=== PATIENT | male | born 1935 | race Caucasian/White ===

== ENCOUNTER 2021-04-24 16:51 | Emergency (ER) | payer MEDICARE ==
[2021-04-24] MEDS ORDERED: SODIUM CHLORIDE 0.9% 500 ML 500 ML IV ONE (16:54)
[2021-04-24 16:59] VITALS: TEMP 97.5
--- NOTE | 2021-04-24 17:07 | ED ---
Altered Mental Status HPI - General Stated Complaint: Altered mental Time Seen by Provider: 04/24/21 16:54 Source: patient, EMS Mode of arrival: EMS Limitations: altered mental status - History of Present Illness Initial Comments: Darren is a very pleasant 86-year-old gentleman is brought to the emergency department today by ambulance with police escort. Patient was apparently found on the water breakage and was quite confused. Patient reports that there is nothing that on TV that we run so he got his truck and started driving. Patient apparently left his home and [facility] 3 days ago and has been sleeping in his car. Uncertain where he has been. He was not aware he was attempting to cross and to [place] when he was stopped. Can't explain why he has been driving if he has been eating and states that he's been sleeping in his truck. Patient does not know where he is or what day it is. Truck at [employer] Complaint: intoxication - Related Data Home Medications Medication Instructions Recorded Confirmed Unable To Assess [Unable to Assess] 04/24/21 04/24/21 Allergies Allergy/AdvReac Type Severity Reaction Status Date / Time No Known Allergies Allergy Verified 04/24/21 17:22 Review of Systems ROS Statement: Those systems with pertinent positive or pertinent negative responses have been documented in the HPI. ROS Other: All systems not noted in ROS Statement are negative. General Exam Limitations: altered mental status Course Vital Signs 04/24/21 04/24/21 04/24/21 16:52 18:59 21:47 Temperature 97.5 F L Pulse Rate 74 68 72 Respiratory 19 17 18 Rate Blood Pressure 146/80 150/78 171/92 O2 Sat by Pulse 95 96 97 Oximetry Medical Decision Making - Medical Decision Making The patient was seen and evaluated, history is obtained from the patient and PD. This a very pleasant 86-year-old gentleman who [facility], he is from [facility] could not explain why he was on the bridge stated that he was just following this in mind front of him. He denies any physical complaints. Patient's labs were obtained and troponin was critically elevated at 4.4, this was discussed with Dr. Varela there is no chest pain is no ischemic findings on EKG. He recommended trending the troponin. Patient care was discussed with admitting physician Dr. patrick the who since the admission for elevated troponin and confusion. Patient remained chest pain-free throughout his stay in the ER. He was found walking around the ER is quite friendly and in absolutely no distress. His granddaughter arrived at bedside from [facility]. She was notified of his elevated troponin concerned that he has dying heart tissue and is having a heart attack. Patient remained asymptomatic and absolutely insisted that he be allowed to go home with the granddaughter. Medical condition was discussed with patient, daughter telephone and granddaughter at bedside. They are aware that there is concern he is having heart attack. However the patient remains asymptomatic the granddaughter will take him out of the hospital at this time to [facility] and states that she will have him evaluated in the hospital there. - Lab Data Result diagrams: 04/24/21 17:17 04/24/21 17:17 Lab Results 04/24/21 04/24/21 04/24/21 Range/Units 17:17 17:17 17:17 WBC 9.3 (3.8-10.6) k/uL RBC 5.27 (4.30-5.90) m/uL Hgb 17.1 (13.0-17.5) gm/dL Hct 50.4 (39.0-53.0) % MCV 95.7 (80.0-100.0) fL MCH 32.4 (25.0-35.0) pg MCHC 33.8 (31.0-37.0) g/dL RDW 12.6 (11.5-15.5) % Plt Count 157 (150-450) k/uL MPV 9.8 Neutrophils % 84 % Lymphocytes % 6 % Monocytes % 7 % Eosinophils % 1 % Basophils % 1 % Neutrophils # 7.8 H (1.3-7.7) k/uL Lymphocytes # 0.6 L (1.0-4.8) k/uL Monocytes # 0.6 (0-1.0) k/uL Eosinophils # 0.1 (0-0.7) k/uL Basophils # 0.1 (0-0.2) k/uL PT 11.5 (9.0-12.0) sec INR 1.1 (<1.2) APTT 24.7 (22.0-30.0) sec Sodium 139 (137-145) mmol/L Potassium 4.2 (3.5-5.1) mmol/L Chloride 101 (98-107) mmol/L Carbon Dioxide 27 (22-30) mmol/L Anion Gap 11 mmol/L BUN 23 H (9-20) mg/dL Creatinine 1.53 H (0.66-1.25) mg/dL Est GFR (CKD-EPI)AfAm 47 (>60 ml/min/1.73 sqM) Est GFR (CKD-EPI)NonAf 41 (>60 ml/min/1.73 sqM) Glucose 132 H (74-99) mg/dL POC Glucose (mg/dL) (75-99) mg/dL POC Glu Aerodynamics Teacher ID Calcium 10.0 (8.4-10.2) mg/dL Total Bilirubin 1.1 (0.2-1.3) mg/dL AST 46 (17-59) U/L ALT 16 (4-49) U/L Alkaline Phosphatase 98 (38-126) U/L Troponin I (0.000-0.034) ng/mL Total Protein 7.1 (6.3-8.2) g/dL Albumin 4.5 (3.5-5.0) g/dL Urine Color Urine Appearance (Clear) Urine pH (5.0-8.0) Ur Specific Roberts (1.001-1.035) Urine Protein (Negative) Urine Glucose (UA) (Negative) Urine Ketones (Negative) Urine Blood (Negative) Urine Nitrite (Negative) Urine Bilirubin (Negative) Urine Urobilinogen (<2.0) mg/dL Ur Leukocyte Esterase (Negative) Urine Opiates Screen (NotDetected) Ur Oxycodone Screen (NotDetected) Urine Methadone Screen (NotDetected) Ur Propoxyphene Screen (NotDetected) Ur Barbiturates Screen (NotDetected) U Tricyclic Antidepress (NotDetected) Ur Phencyclidine Scrn (NotDetected) Ur Amphetamines Screen (NotDetected) U Methamphetamines Scrn (NotDetected) U Benzodiazepines Scrn (NotDetected) Urine Cocaine Screen (NotDetected) U Marijuana (THC) Screen (NotDetected) Serum Alcohol <10 mg/dL 04/24/21 04/24/21 04/24/21 Range/Units 17:17 17:27 20:30 WBC (3.8-10.6) k/uL RBC (4.30-5.90) m/uL Hgb (13.0-17.5) gm/dL Hct (39.0-53.0) % MCV (80.0-100.0) fL MCH (25.0-35.0) pg MCHC (31.0-37.0) g/dL RDW (11.5-15.5) % Plt Count (150-450) k/uL MPV Neutrophils % % Lymphocytes % % Monocytes % % Eosinophils % % Basophils % % Neutrophils # (1.3-7.7) k/uL Lymphocytes # (1.0-4.8) k/uL Monocytes # (0-1.0) k/uL Eosinophils # (0-0.7) k/uL Basophils # (0-0.2) k/uL PT (9.0-12.0) sec INR (<1.2) APTT (22.0-30.0) sec Sodium (137-145) mmol/L Potassium (3.5-5.1) mmol/L Chloride (98-107) mmol/L Carbon Dioxide (22-30) mmol/L Anion Gap mmol/L BUN (9-20) mg/dL Creatinine (0.66-1.25) mg/dL Est GFR (CKD-EPI)AfAm (>60 ml/min/1.73 sqM) Est GFR (CKD-EPI)NonAf (>60 ml/min/1.73 sqM) Glucose (74-99) mg/dL POC Glucose (mg/dL) 114 H (75-99) mg/dL POC Glu Aerodynamics Teacher ID Maurice Gaspar Calcium (8.4-10.2) mg/dL Total Bilirubin (0.2-1.3) mg/dL AST (17-59) U/L ALT (4-49) U/L Alkaline Phosphatase (38-126) U/L Troponin I 4.460 H* 4.630 H* (0.000-0.034) ng/mL Total Protein (6.3-8.2) g/dL Albumin (3.5-5.0) g/dL Urine Color Urine Appearance (Clear) Urine pH (5.0-8.0) Ur Specific Roberts (1.001-1.035) Urine Protein (Negative) Urine Glucose (UA) (Negative) Urine Ketones (Negative) Urine Blood (Negative) Urine Nitrite (Negative) Urine Bilirubin (Negative) Urine Urobilinogen (<2.0) mg/dL Ur Leukocyte Esterase (Negative) Urine Opiates Screen (NotDetected) Ur Oxycodone Screen (NotDetected) Urine Methadone Screen (NotDetected) Ur Propoxyphene Screen (NotDetected) Ur Barbiturates Screen (NotDetected) U Tricyclic Antidepress (NotDetected) Ur Phencyclidine Scrn (NotDetected) Ur Amphetamines Screen (NotDetected) U Methamphetamines Scrn (NotDetected) U Benzodiazepines Scrn (NotDetected) Urine Cocaine Screen (NotDetected) U Marijuana (THC) Screen (NotDetected) Serum Alcohol mg/dL 04/24/21 04/24/21 Range/Units 21:38 21:38 WBC (3.8-10.6) k/uL RBC (4.30-5.90) m/uL Hgb (13.0-17.5) gm/dL Hct (39.0-53.0) % MCV (80.0-100.0) fL MCH (25.0-35.0) pg MCHC (31.0-37.0) g/dL RDW (11.5-15.5) % Plt Count (150-450) k/uL MPV Neutrophils % % Lymphocytes % % Monocytes % % Eosinophils % % Basophils % % Neutrophils # (1.3-7.7) k/uL Lymphocytes # (1.0-4.8) k/uL Monocytes # (0-1.0) k/uL Eosinophils # (0-0.7) k/uL Basophils # (0-0.2) k/uL PT (9.0-12.0) sec INR (<1.2) APTT (22.0-30.0) sec Sodium (137-145) mmol/L Potassium (3.5-5.1) mmol/L Chloride (98-107) mmol/L Carbon Dioxide (22-30) mmol/L Anion Gap mmol/L BUN (9-20) mg/dL Creatinine (0.66-1.25) mg/dL Est GFR (CKD-EPI)AfAm (>60 ml/min/1.73 sqM) Est GFR (CKD-EPI)NonAf (>60 ml/min/1.73 sqM) Glucose (74-99) mg/dL POC Glucose (mg/dL) (75-99) mg/dL POC Glu Aerodynamics Teacher ID Calcium (8.4-10.2) mg/dL Total Bilirubin (0.2-1.3) mg/dL AST (17-59) U/L ALT (4-49) U/L Alkaline Phosphatase (38-126) U/L Troponin I 5.100 H* (0.000-0.034) ng/mL Total Protein (6.3-8.2) g/dL Albumin (3.5-5.0) g/dL Urine Color Yellow Urine Appearance Cloudy (Clear) Urine pH 8.0 (5.0-8.0) Ur Specific Roberts 1.016 (1.001-1.035) Urine Protein 3+ H (Negative) Urine Glucose (UA) Negative (Negative) Urine Ketones Negative (Negative) Urine Blood Moderate H (Negative) Urine Nitrite Positive (Negative) Urine Bilirubin Negative (Negative) Urine Urobilinogen <2.0 (<2.0) mg/dL Ur Leukocyte Esterase Large H (Negative) Urine Opiates Screen Not Detected (NotDetected) Ur Oxycodone Screen Not Detected (NotDetected) Urine Methadone Screen Not Detected (NotDetected) Ur Propoxyphene Screen Not Detected (NotDetected) Ur Barbiturates Screen Not Detected (NotDetected) U Tricyclic Antidepress Not Detected (NotDetected) Ur Phencyclidine Scrn Not Detected (NotDetected) Ur Amphetamines Screen Not Detected (NotDetected) U Methamphetamines Scrn Not Detected (NotDetected) U Benzodiazepines Scrn Not Detected (NotDetected) Urine Cocaine Screen Not Detected (NotDetected) U Marijuana (THC) Screen Not Detected (NotDetected) Serum Alcohol mg/dL - EKG Data -: EKG Interpreted by Me EKG Comments: EKG was obtained as part altered mental status workup, EKG was obtained at 1702, rate is 74 rhythm is sinus with frequent PACs, normal axis, CA 134, QRS 104, QTC is prolonged at 503 there are no acute ST elevations or depressions no evidence of ischemia or infarction. Disposition Clinical Impression: Confusion, Elevated troponin Disposition: Left Against Medical Advice Condition: Serious Is patient prescribed a controlled substance at d/c from ED?: No Referrals: None,Stated [Primary Care Provider] - 1-2 days
[2021-04-24 17:25] LABS: Basophils # (A) 0.1 k/uL (0-0.2); Basophils % (A) 1 %; Eosinophils # (A) 0.1 k/uL (0-0.7); Eosinophils % (A) 1 %; HCT 50.4 % (39.0-53.0); HGB 17.1 gm/dL (13.0-17.5); Lymphocytes # (A) 0.6 k/uL (1.0-4.8); Lymphocytes % (A) 6 %; MCH 32.4 pg (25.0-35.0); MCHC 33.8 g/dL (31.0-37.0); MCV 95.7 fL (80.0-100.0); Mean Platelet Volume 9.8; Monocytes # (A) 0.6 k/uL (0-1.0); Monocytes % (A) 7 %; Neutrophils # (A) 7.8 k/uL (1.3-7.7); Neutrophils % (A) 84 %; Platelet Count 157 k/uL (150-450); RBC 5.27 m/uL (4.30-5.90); RDW 12.6 % (11.5-15.5); WBC 9.3 k/uL (3.8-10.6)
[2021-04-24 17:28] LABS: Glucose,Whole Blood 114 mg/dL (75-99)
[2021-04-24 17:34] LABS: ALT 16 U/L (4-49); AST 46 U/L (17-59); African American GFR (CKD) 47 (>60 ml/min/1.73 sqM); Albumin 4.5 g/dL (3.5-5.0); Alcohol <10 mg/dL; Alkaline Phosphatase 98 U/L (38-126); Anion Gap 11 mmol/L; Blood Urea Nitrogen 23 mg/dL (9-20); Carbon Dioxide 27 mmol/L (22-30); Chloride 101 mmol/L (98-107); Glucose 132 mg/dL (74-99); Non-African American GFR(CKD) 41 (>60 ml/min/1.73 sqM); Potassium 4.2 mmol/L (3.5-5.1); Sodium 139 mmol/L (137-145); Total Bilirubin 1.1 mg/dL (0.2-1.3); Total Protein 7.1 g/dL (6.3-8.2)
[2021-04-24 17:35] LABS: INR 1.1 (<1.2); Partial Thromboplastin Time 24.7 sec (22.0-30.0); Prothrombin Time 11.5 sec (9.0-12.0)
--- NOTE | 2021-04-24 19:07 | CT ---
EXAMINATION TYPE: CT brain wo con DATE OF EXAM: 04/24/2021 COMPARISON: None HISTORY: 86-year-old male with altered mental status TECHNIQUE: CT scan of the head performed without contrast CT DLP: 1099.4 mGycm Automated exposure control for dose reduction was used. FINDINGS: No evidence of acute intracranial hemorrhage, midline shift or mass effect. Encephalomalacia changes seen in the right frontal/parietal lobe likely related to remote infarct. Multiple bilateral lacunar infarcts and microangiopathic changes are demonstrated. Advanced brain volume atrophy noted. No acute intraorbital or osseous abnormality. Mucosal thickening in the paranasal sinuses seen. Mastoid air cells are radiated. Atherosclerotic calcifications in the internal carotid arteries and vertebrobasilar arteries noted. IMPRESSION: NO ACUTE INTRACRANIAL HEMORRHAGE, MIDLINE SHIFT OR MASS EFFECT. 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 ADVANCED BRAIN VOLUME ATROPHY. MICROANGIOPATHIC CHANGES. MUCOSAL SINUS DISEASE.
[2021-04-24] MEDS ORDERED: NITROGLYCERIN SL TABS 0.4 MG TAB SUBLINGUAL PRN (19:59)
[2021-04-24] MEDS ORDERED: ASPIRIN 81 MG PO STA (19:59)
--- NOTE | 2021-04-24 20:36 | XR ---
EXAMINATION TYPE: XR chest 2V DATE OF EXAM: 04/24/2021 COMPARISON: None HISTORY: 86-year-old male confusion, altered mental status TECHNIQUE: AP and lateral views FINDINGS: The heart is mildly enlarged. Diffuse interstitial/vascular prominence. Accentuated mid thoracic kyph osis. No opal consolidation or sizable effusion. Suggestion of a calcified granuloma measuring 1 cm at the posterior left base. Old left-sided rib fracture deformities. IMPRESSION: Moderate cardiomegaly. Interstitial/vascular prominence which may in part be chronic. Correlate to ex clude mild pulmonary vascular congestion.
[2021-04-24 21:48] LABS: Appearance,Urine Cloudy (Clear); Bilirubin,Urine Negative (Negative); Blood,Urine Moderate (Negative); Color,Urine Yellow; Glucose,Urine (UA) Negative (Negative); Ketones,Urine Negative (Negative); Leukocyte Esterase,Urine Large (Negative); Nitrite,Urine Positive (Negative); Protein,Urine 3+ (Negative); Specific Gravity,Urine 1.016 (1.001-1.035); Urobilinogen,Urine <2.0 mg/dL (<2.0)
[2021-04-24 21:58] VITALS: BP 171/92; PULSE 72; RESP 18
[2021-04-24 22:12] LABS: Amphetamine Screen,Urine Not Detected (NotDetected); Barbiturate Screen,Urine Not Detected (NotDetected); Benzodiazepines Screen,Urine Not Detected (NotDetected); Cocaine Screen,Urine Not Detected (NotDetected); Methadone Screen, Urine Not Detected (NotDetected); Opiate Screen,Urine Not Detected (NotDetected); Oxycodone Screen, Urine Not Detected (NotDetected); Phencyclidine Screen,Urine Not Detected (NotDetected); Tricyclic Antidepressant,Urine Not Detected (NotDetected); Urn Cannabinoid Scrn Not Detected (NotDetected)
[2021-04-25] MEDS ORDERED: ASPIRIN 325 MG TAB PO SCH (09:00)
== END 2021-04-24 21:47 | disposition left against medical advice (07) ==
LOC: EC 16:51 → 3SCARD 19:59 → UNDOADMOB 19:59 → EC 21:47
DX: R41.0 Disorientation, unspecified (principal); R79.89 Other specified abnormal findings of blood chemistry
CPT/HCPCS: 36415; 93005; 80053; 84484; 85025; 85610; 85730; 81001; 80306; 71046; 70450; 99285; G0480; 80320